=== PATIENT | male | born 1995 | race Caucasian/White ===

== ENCOUNTER 2017-05-20 20:50 | Emergency (ER) | payer BC ==
[~2017-05-20] VITALS: Ht 188 cm; Wt 69.6 kg
[2017-05-20 20:53] VITALS: TEMP 36.3; Ht 188 cm; Wt 69.6 kg
[2017-05-20] MEDS ORDERED: FENTANYL CITRATE INJ 50 MCG/1 ML 2 ML VIAL IV STA (21:13)
[2017-05-20] MEDS ORDERED: ONDANSETRON INJ 2 MG/ML 2 ML VIAL IV STA (21:14)
[2017-05-20] MEDS ORDERED: CHOL1000 PO (21:16)
[2017-05-20] MEDS ORDERED: METH10TA4 PO (21:16)
[2017-05-20] MEDS ORDERED: MULT-506 PO (21:16)
[2017-05-20] MEDS ORDERED: CNC/36 PO (21:16)
[2017-05-20] MEDS ORDERED: ASCO500T3 PO (21:16)
--- NOTE | 2017-05-20 21:41 | EMERGENCY ROOM VISIT NOTE ---
ED Visit Note First contact with patient: 21:02 CHIEF COMPLAINT: "I broke my left forearm" HISTORY OF PRESENT ILLNESS: This 22-year-old male patient presents to the emergency department, ambulatory, with 2 friends, complaining of pain in the left forearm. The patient states he was playing ultimate [employer] approximately 30 minutes [employer] when his feet slid out from under him. He states he landed on his left arm, describes it as a FOOSH injury. The patient is able to move their wrist. The patient states the pain is severe on palpation and with attempts to move and 9/10. No laceration, no weakness. No numbness or tingling. The patient denies any other injury. The patient is able to move their fingers and elbow without difficulty. The patient has not had a previous fracture to this wrist or forearm. The patient has taken nothing for the pain. REVIEW OF SYSTEMS: A 6 system review of systems was performed with positives and pertinent negatives in the HPI. ALLERGIES: None MEDICATIONS: Concerta, Ritalin PMH: ADHD SOCIAL HISTORY: The patient lives locally. He is a [employer] student. He lives with his roommates. The patient denies drug, alcohol, tobacco use PHYSICAL EXAM: Vital Signs: Reviewed Nurse's notes, vital signs stable. GENERAL : Is is a 22-year-old white male, in no acute distress, but appears to be in pain, well-developed, well-nourished. NEURO: Alert and oriented to person place and time. Normal sensation to light and sharp touch. MUSCULOSKELETAL: There is no deformity of the left forearm. There is tenderness and edema over the mid shaft of the radius and ulna. There is no snuff box tenderness. Range of motion is limited due to pain. There is no tenderness of the elbow, hand or fingers. [employer] Text[employer] Supervisor strength 4/5. Radial pulse 2+. SKIN: Normal and intact. The hand is warm and well perfused with capillary refill less than 2 seconds. RADIOLOGY: X-Ray Left Forearm: L FOREARM 2 VIEWS ROUTINE HISTORY: 22 years-old Male left forearm pain, possible fracture acute left forearm pain status post injury. COMPARISON: None available TECHNIQUE: 3 views of the left forearm FINDINGS: Acute comminuted fracture of the proximal diaphyseal radius is noted with butterfly fracture fragment displaced medially x 3 mm and dorsally x 3 mm. There is 4 mm medial displacement of the distal fracture fragment with approximately 2 mm distraction. Acute minimally comminuted fracture of the mid diaphyseal ulna also noted with apex lateral angulation of 5 degrees, lateral displacement of 3 mm and dorsal displacement 5 mm. 6 mm positive ulnar variance. Mild soft tissue swelling of the mid forearm. No opaque foreign body. IMPRESSION: 1. Acute comminuted fracture of the proximal diaphyseal radius with mild displacement as above. 2. Acute minimally comminuted fracture of the mid diaphyseal ulna with mild displacement and angulation The above report was generated using voice recognition software. It may contain grammatical, syntax or spelling errors. . Electronically signed by: Bari Nathan M.D. 05/20/2017 10:14 PM Dictated Date/Time: 05/20/2017 10:10 PM EMERGENCY DEPARTMENT COURSE: I examined the patient. His sweatshirt was removed and the sleeve of his [place] shirt was cut with trauma guy to expose the skin of the forearm. An IV was established and the patient was given 50 g of fentanyl and 4 mg Zofran. An X-ray of the left forearm was reviewed by myself and radiologist and showed acute comminuted fractures of the radius and, as described above. A sugar tong Ortho-Glass splint was placed under my direction and the position was satisfactory. Neurovascular status rechecked and intact. The patient was given an arm sling. He was given 5 mg OxyIR prior to discharge. He was sent home with a home pack for OxyIR and instructions on when to take it. The patient was given very clear, specific instructions on orthopedic follow-up in 1-2 days. The patient was discharged home in good condition. I attest that I have personally reviewed the patient's current medication list. Patient was found to have normal blood pressure on screening and does not require follow-up. DIFFERENTIAL DIAGNOSIS: Fracture, sprain, strain, contusion, and others DIAGNOSIS: Radius and ulna fracture Current/Historical Medications Scheduled Ascorbic Acid (Vitamin C), 500 MG PO DAILY Cholecalciferol (Vitamin D3), 1,000 INTER.UNIT PO DAILY Methylphenidate (Ritalin), 10 MG PO DAILY Methylphenidate Hcl (Concerta), 72 MG PO QAM Multivitamin (Multivitamin), 1 TAB PO DAILY Scheduled PRN Oxycodone Ir (Roxicodone Ir), 1-2 TAB PO Q4H PRN for Pain Allergies Coded Allergies: No Known Allergies (Unverified , 05/20/17) Vital Signs Date Time Temp Pulse Resp B/P (MAP) Pulse Ox O2 Delivery O2 Flow Rate FiO2 05/20/17 22:50 71 16 133/86 100 Room Air 05/20/17 21:51 86 18 127/71 93 Room Air 05/20/17 20:53 36.3 82 24 136/89 95 Room Air Medications Administered Medications (Trade) Dose Ordered Sig/Ivana Route Start Time Stop Time Status Last Admin Dose Admin Fentanyl Citrate (Fentanyl Inj) 50 mcg NOW STAT IV 05/20/17 21:13 05/20/17 21:15 DC 05/20/17 21:28 50 MCG Ondansetron HCl (Zofran Inj) 4 mg NOW STAT IV 05/20/17 21:14 05/20/17 21:15 DC 05/20/17 21:25 4 MG Oxycodone HCl (Roxicodone Immediate Rel Tab) 5 mg NOW STAT PO 05/20/17 22:38 05/20/17 22:39 DC 05/20/17 22:53 5 MG Oxycodone HCl (Roxicodone Immediate Rel 5MG Home Pack) 1 homepack UD ONCE PO 05/20/17 22:45 05/20/17 22:46 DC 05/20/17 22:53 1 HOMEPACK Departure Information Impression Primary Impression: Radius and ulna proximal end fracture Dispostion Home / Self-Care Condition GOOD Prescriptions Oxycodone Ir (Roxicodone Ir) 5 Mg Tab 1-2 TAB PO Q4H Y for Pain, #15 TAB For Initial Treatment Prov: Dora Luz, PATushar 05/20/17 Referrals No Doctor, Assigned (PCP) Tunde Villatoro M.D. Patient Instructions ED Fx Forearm Radius Ulna No Redu Requ, [facility] Additional Instructions ORTHOPEDIC INSTRUCTIONS: DO NOT drive, drink alcohol, operate machinery, or perform dangerous activities today. You were given medications in the ER that can affect your ability to safely function or operate a vehicle. Oxycodone (OxyIR) 5mg: Take 1-2 pills every four to six hours as needed for breakthrough pain which is not controlled with OTC pain medications. Avoid alcohol, operating machinery or dangerous equipment, working on ladders or roofs , DRIVING, or situations where being under the influence may be dangerous. It is recommended to use an [id number]-[id number] stool softener such as Colace, 100mg twice daily while taking this medication to avoid constipation. Ibuprofen(Motrin, Advil) may be used for fever or pain. Use 600mg every six hours as needed. Take with food. Avoid using more than 2400mg in a 24 hour period. Do not use 2400mg per day for more than three consecutive days without physician direction. Prolonged inappropriate use can lead to stomach upset or ulcers. (AND/OR) Acetaminophen(Tylenol) may be used for fever or pain. Use 1000mg every six hours as needed. Avoid using more than 3000mg in a 24 hour period. Ice compresses for 20 minutes at a time four times daily for 2-3 days. Use the sling as instructed. Remove your arm from the sling 4-6 times a day and move all the joints around to keep them loose. Rest and elevate your injury. Do not get the splint wet. If your splint feels excessively tight, you have worsening pain, develop numbness or tingling, or your digits appear blue, loosen the geeta wrap. Then reapply the geeta wrap gently without removing the splint. If your symptoms are not quickly relieved return to the ER for re- evaluation. Return to the ER immediately for any numbness, tingling, severe pain, extreme swelling in the extremity or as needed. Call [facility], [phone], tomorrow to arrange follow up for your injury. Follow-up with your primary care physician in 2 to 3 days for a recheck of your current condition. Problem Qualifiers Primary Impression: Radius and ulna proximal end fracture Encounter type: initial encounter Fracture type: closed Laterality: left Qualified Codes: S52.002A - Unspecified fracture of upper end of left ulna, initial encounter for closed fracture; S52.102A - Unspecified fracture of upper end of left radius, initial encounter for closed fracture
--- NOTE | 2017-05-20 22:15 | DIAGNOSTIC IMAGING REPORT ---
L FOREARM 2 VIEWS ROUTINE HISTORY: 22 years-old Male left forearm pain, possible fracture acute left forearm pain status post injury. COMPARISON: None available TECHNIQUE: 3 views of the left forearm FINDINGS: Acute comminuted fracture of the proximal diaphyseal radius is noted with butterfly fracture fragment displaced medially x 3 mm and dorsally x 3 mm. There is 4 mm medial displacement of the distal fracture fragment with approximately 2 mm distraction. Acute minimally comminuted fracture of the mid diaphyseal ulna also noted with apex lateral angulation of 5 degrees, lateral displacement of 3 mm and dorsal displacement 5 mm. 6 mm positive ulnar variance. Mild soft tissue swelling of the mid forearm. No opaque foreign body. IMPRESSION: 1. Acute comminuted fracture of the proximal diaphyseal radius with mild displacement as above. 2. Acute minimally comminuted fracture of the mid diaphyseal ulna with mild displacement and angulation The above report was generated using voice recognition software. It may contain grammatical, syntax or spelling errors. . Electronically signed by: Bari Nathan M.D. 05/20/2017 10:14 PM Dictated Date/Time: 05/20/2017 10:10 PM
[2017-05-20] MEDS ORDERED: OXYCODONE HCL IR 5 MG TAB (IMMEDIATE RELEASE) PO STA (22:38)
[2017-05-20] MEDS ORDERED: OXYC1TAB3 PO (22:41)
[2017-05-20] MEDS ORDERED: OXYCODONE IR HOME PACK PO ONE (22:45)
[2017-05-20 22:50] VITALS: BP 133/86; PULSE 71; O2SAT 100
== END 2017-05-20 22:56 | disposition home or self-care (01) ==
LOC: C.EDB 20:52 → C.EDD 22:56
DX: S52.002A Unspecified fracture of upper end of left ulna, initial encounter for closed fracture (principal); S52.102A Unspecified fracture of upper end of left radius, initial encounter for closed fracture; W01.0XXA Fall on same level from slipping, tripping and stumbling without subsequent striking against object, initial encounter; Y92.9 Unspecified place or not applicable; Y93.74 Activity, frisbee; F90.9 Attention-deficit hyperactivity disorder, unspecified type; Z79.899 Other long term (current) drug therapy

== ENCOUNTER 2017-11-13 20:47 | Emergency (ER) | payer BC ==
[~2017-11-13] VITALS: Ht 188 cm; Wt 54.9 kg
[~2017-11-13 20:47] MED LIST: ASCO500T3 PO; CHOL1000 PO; CNC/36 PO; METH10TA4 PO; MULT-506 PO; OXYC1TAB3 PO
[2017-11-13 20:50] VITALS: TEMP 37.1; Ht 188 cm; Wt 54.9 kg
--- NOTE | 2017-11-13 21:22 | DIAGNOSTIC IMAGING REPORT ---
L ANKLE MIN 3 VIEWS ROUTINE CLINICAL HISTORY: Left ankle pain s/p inversion injury COMPARISON: None. DISCUSSION: Tiny avulsions from the tip of the medial and lateral malleolus. Age is uncertain. Moderate soft tissue edema over the lateral malleolus. No additional acute bony abnormality. Subtalar joint is intact. IMPRESSION: Tiny avulsions from both the tip of the medial as well as lateral malleolus of uncertain age. Lateral soft tissue edema. The above report was generated using voice recognition software. It may contain grammatical, syntax or spelling errors. Electronically signed by: Garland Verma M.D. 11/13/2017 9:20 PM Dictated Date/Time: 11/13/2017 9:19 PM
--- NOTE | 2017-11-13 21:38 | EMERGENCY ROOM VISIT NOTE ---
History First contact with patient: 20:54 Chief Complaint: ANKLE PAIN Stated Complaint: SPRAINED LEFT ANKLE, POSSIBLY BROKEN History of Present Illness The patient is a 22 year old male who presents to the Emergency Room via private vehicle with complaints of "sprained left ankle, possibly broken". 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 He states that he jumped up and when he landed the left side of the distal foot cleat caught the ground causing his left ankle to invert. He notes pain overlying left lateral malleolus of which he rates as a 6/10. No numbness/ tingling. He has been icing this region. Review of Systems A complete 6-point Review of Systems was discussed with the patient, with pertinent positives and negatives listed in the History of Present Illness. All remaining Review of Systems questions can be considered negative unless otherwise specified. Past Medical/Surgical History Previous ankle injury. Family History Noncontributory. Social History Smoking Status: Never Smoker Patient is a [employer] student and participates in [employer]. Current/Historical Medications Scheduled Ascorbic Acid (Vitamin C), 500 MG PO DAILY Cholecalciferol (Vitamin D3), 1,000 INTER.UNIT PO DAILY Methylphenidate (Ritalin), 10 MG PO DAILY Methylphenidate Hcl (Concerta), 72 MG PO QAM Multivitamin (Multivitamin), 1 TAB PO DAILY Physical Exam Vital Signs Date Time Temp Pulse Resp B/P (MAP) Pulse Ox O2 Delivery O2 Flow Rate FiO2 11/13/17 22:06 81 18 133/72 98 11/13/17 20:50 37.1 112 18 144/81 94 Room Air Physical Exam VITAL SIGNS - Vital signs and nursing notes were reviewed. Stable. GENERAL -22-year-old male appearing his stated age who is in no acute distress. Communicates well with provider and answers questions appropriately. SKIN -overlying the left lateral malleolus there is edema, and minimal skin erythema. The integument is intact. No evidence of open fracture. No obvious bony deformity. No other edema or erythema noted to the left ankle, or left lower extremity. EXTREMITIES - No clubbing or peripheral cyanosis. No pretibial edema present. No tenderness to palpation overlying the left knee, left proximal or mid blank. There is actually no tenderness overlying the distal blank however overlying the left lateral malleolus region and even a small spot on the inferior aspect of the left medial malleolus region there is minimal tenderness. Skin changes as above. Minimal decrease in range of motion secondary to pain. +5/5 strength noted in UE/LE bilaterally. He is neurovascularly intact in this region. Medical Decision & Procedures ER Provider Diagnostic Interpretation: L ANKLE MIN 3 VIEWS ROUTINE CLINICAL HISTORY: Left ankle pain s/p inversion injury COMPARISON: None. DISCUSSION: Tiny avulsions from the tip of the medial and lateral malleolus. Age is uncertain. Moderate soft tissue edema over the lateral malleolus. No additional acute bony abnormality. Subtalar joint is intact. IMPRESSION: Tiny avulsions from both the tip of the medial as well as lateral malleolus of uncertain age. Lateral soft tissue edema. The above report was generated using voice recognition software. It may contain grammatical, syntax or spelling errors. Electronically signed by: Garland Verma M.D. 11/13/2017 9:20 PM Dictated Date/Time: 11/13/2017 9:19 PM Medical Decision Patient was seen and evaluated as above in room D6. Review was performed of nursing notes and vital signs. After obtaining a thorough history and physical examination the above work up was performed. X-ray was obtained. He declined pain medication. This reveals age indeterminant avulsions of the medial and lateral malleolar regions of the left ankle. Paring this with clinical examination, I do suspect that he has an acute avulsion of the inferior aspect of the left lateral malleolus. This is where the edema is present, and is consistent with mechanism of injury. However, there is also a small avulsion just inferior to the left medial malleolus region. Given that these are very tiny avulsions I do believe that a gel ankle splint is still appropriate in this case. This was applied with adequate immobilization. He is to maintain a nonweightbearing status until he follows with orthopedics which she is to call to follow-up/make an appointment within 2 weeks. He was educated upon worrisome symptoms which to return. The patient was educated upon management, had questions answered prior to discharge, and was discharged home in good condition. In the evaluation and treatment of this patient, the following differential diagnoses were considered: Ankle Fracture, Ankle Sprain, Distal Fibula Fracture , Distal Tibia Fracture, Foot Fracture, [place] Fracture. Impression Primary Impression: Left ankle pain Departure Information Dispostion Home / Self-Care Condition GOOD Referrals No Doctor, Assigned (PCP) Ruslan Garcia D.O. Patient Instructions [facility] Additional Instructions You have been treated in the Emergency Department for a left Ankle injury For pain control, you can use the following [id number] medicines: - Regular strength (325mg/tab) Tylenol (acetaminophen) 2 tabs every 4-6 hours as needed. Do not exceed 12 tablets in a 24 hour period. Avoid taking more than 3 grams (3000 mg) of Tylenol per day. This includes any other sources of acetaminophen you may take on a regular basis. - Regular strength (200 mg/tab) Advil (ibuprofen) 1-2 tabs every 4-6 hours as needed. Do not exceed a dose of 3200 mg per day. If this is a recent injury (<24 hrs), ice can be applied to the area of pain for the first 3 days to help decrease pain and inflammation. You have been provided the number for an Orthopaedic Surgeon. You should call this number as soon as possible to establish a follow-up visit from today's Emergency Department visit. Keep the ankle brace/splint in place until cleared by Orthopedics. Use the crutches you have been provided to keep ALL weight off of the ankle until weight bearing is tolerable. Return to the Emergency Department if your current symptoms worsen despite treatment course outlined above, or if you develop any of the following symptoms : intractable pain despite aforementioned treatment course or new onset of numbness or tingling of the foot. XRAY: L ANKLE MIN 3 VIEWS ROUTINE CLINICAL HISTORY: Left ankle pain s/p inversion injury COMPARISON: None. DISCUSSION: Tiny avulsions from the tip of the medial and lateral malleolus. Age is uncertain. Moderate soft tissue edema over the lateral malleolus. No additional acute bony abnormality. Subtalar joint is intact.
[2017-11-13 22:06] VITALS: BP 133/72; PULSE 81; O2SAT 98
== END 2017-11-13 21:55 | disposition home or self-care (01) ==
LOC: C.EDB 20:48 → C.EDD 21:55
DX: M25.572 Pain in left ankle and joints of left foot (principal); R60.0 Localized edema